=== PATIENT | male | born 1995 | race Caucasian/White ===

== ENCOUNTER → 2023-09-05 | Outpatient (CLI) | payer OTHER | END | disposition home or self-care (01) | LOC: RAH 09:43 | PROVIDERS: ATTEND Physical Medicine & Rehabilitation | DX: M48.46XA Fatigue fracture of vertebra, lumbar region, initial encounter for fracture (principal); X58.XXXA Exposure to other specified factors, initial encounter; Y93.82 Activity, spectator at an event; Y92.89 Other specified places as the place of occurrence of the external cause; Y99.8 Other external cause status | CPT/HCPCS: 72110 ==

== ENCOUNTER → 2023-09-11 | Outpatient (CLI) | payer OTHER | END | disposition home or self-care (01) | LOC: RAH 09:45 → EDUNIT# 09-14 09:00 | PROVIDERS: ATTEND Physical Medicine & Rehabilitation | DX: M48.46XA Fatigue fracture of vertebra, lumbar region, initial encounter for fracture (principal); M48.061 Spinal stenosis, lumbar region without neurogenic claudication | CPT/HCPCS: 72148 ==

== ENCOUNTER 2024-10-25 22:50 | Emergency (ER) | payer OTHER ==
[~2024-10-25] VITALS: Ht 175.3 cm; Wt 70.3 kg
--- NOTE | 2024-10-26 00:16 | ERN ---
General Chief Complaint: FOOT INJURY/PAIN Stated Complaint: STEPPED ON NAIL Time Seen by MD: 23:03 Time Seen by Midlevel: 23:03 Source: patient History of Present Illness Initial Comments Patient is a 29-year-old male with no significant past medical history presenting to the emergency department with right foot pain after he accidentally stepped on a nail. Patient was able to provide a picture of the nail and it appears the nail was anita. This occurred approximately 30 minutes prior to arrival. Patient states he is not up-to-date with his tetanus vaccination. Allergies: Coded Allergies: No Known Allergies (Unverified Allergy, Unknown, 10/25/24) Home Meds Active Scripts Cephalexin Monohydrate (Keflex) 500 Mg Cap, 500 MG PO BID for 7 Days, #14 CAP Prov:ZOHREH DODD 10/26/24 Past Medical History Past Medical History: No Pertinent History Past Surgical History: None ROS Dictation CONSTITUTIONAL: Negative except for HPI HEAD/FACE: Negative except for HPI EENT: Negative except for HPI RESPIRATORY: Negative except for HPI GASTROINTESTINAL/ABDOMINAL: Negative except for HPI GENITOURINARY: Negative except for HPI MUSCULOSKELETAL: Negative except for HPI INTEGUMENTARY: Negative except for HPI NEUROLOGICAL/PSYCH: Negative except for HPI HEMATOLOGIC/LYMPHATIC: Negative except for HPI All Systems Negative, Except as noted above. 13 point review of systems assessed and all negative except for above. Physical Exam Physical Exam Dictation PHYSICAL EXAM: GENERAL: alert,, awake oriented x 3 HEENT: EOMI, Sclera non icteric, moist mucosa NECK: Supple, no JVD, trachea midline LUNGS: Clear breath sounds bilaterally. No wheezes HEART: Regular rate and rhythm. Normal S1 and S2, without murmurs ABD: Abdomen soft, nontender. Bowel sounds present EXT: No clubbing or cyanosis, NEURO: Alert and oriented to person, follows commands SKIN: Small circular puncture wound to the plantar aspect of the right foot just below the 1st and 2nd toe, there was no surrounding erythema, induration, or drainable abscess. No active bleeding. MDM MDM: Patient is a 29-year-old male with no significant past medical history presenting to the emergency department with right foot pain after he accidentally stepped on a nail. Patient was able to provide a picture of the nail and it appears the nail was anita. This occurred approximately 30 minutes prior to arrival. Patient states he is not up-to-date with his tetanus vaccination. On physical examination there is a small circular puncture wound to the plantar aspect of the right foot just below the 1st and 2nd toe, there was no surrounding erythema, induration, or drainable abscess. No active bleeding. An x-ray of the right foot was obtained which does not show any acute fracture/subluxation/foreign body. Patient was given a tetanus vaccination along with 1 g of Ancef IM. Patient will be discharged home with oral antibiotics for empiric treatment. Patient was advised to follow up with PCP in 2-3 days for repeat evaluation. Differential diagnosis: Puncture wound, tetanus prophylaxis, fracture There are no social concerns with this patient. Prescription drug management Prescriptions will include: Keflex Medical management and examination interpretation discussions were had by me with other qualified healthcare professionals as indicated for the patient's care. ED Course Orders Procedure Category Date Status Time Foot Comp 3+Vws Rt RAD 10/25/24 Resulted 23:11 Cefazolin Sodium 1 Gm PHA 10/25/24 Complete Vial (Ancef 1 Gm V 23:30 Tetanus,Diphtheria PHA 10/25/24 Complete Tox [Adult] (Diphther 23:30 Water For PHA 10/26/24 Complete Injection,Sterile 00:21 Current Medications Medications (Trade) Dose Ordered Sig/Jesus Route PRN Reason Start Time Stop Time Status Last Admin Dose Admin Cefazolin Sodium (ANCEF 1 gm vial) 1 gm ONCE IM 10/25/24 23:30 10/26/24 00:52 DC 10/26/24 00:31 Sterile Water (Sterile Water, Injection) 10 ml STK-MED ONCE .ROUTE 10/26/24 00:21 10/26/24 00:21 DC 10/26/24 00:32 Tetanus/ Diphtheria Toxoids Adsorbed (DiphthERIA-teTANUS TOXOID [ADULT]/ DECAVAC) 0.5 ml ONCE ONCE IM 10/25/24 23:30 10/25/24 23:31 DC 10/26/24 00:31 Vital Signs Date Time Temp Pulse Resp B/P (MAP) Pulse Ox O2 Delivery O2 Flow Rate FiO2 10/26/24 00:43 98.1 68 16 116/72 99 Room Air* 0 21 10/25/24 22:52 98.2 68 16 111/76 100 Room Air 0 [facility] [address] [address] IMAGING REPORT Signed PATIENT: RACHEL FAULKNER MR#: [id number] : 1995 SEX: M AGE: 29 LOCATION: [facility] ORDER 10 STATUS: DEP ER REPORT#: [id number] SERVICE 10 REASON: nail injury ORDERING PHYSICIAN: ZOHREH DODD PROCEDURE: FT 3VW RT - FOOT COMP 3+VWS RT RIGHT FOOT RADIOGRAPHS - 3 VIEWS INDICATION: Pain COMPARISON: None FINDINGS: AP, lateral, and oblique views. No acute fracture or subluxation identified. Midfoot alignment is well maintained. No radiopaque foreign body noted. IMPRESSION: No evidence for fracture or subluxation. DICTATED BY: ABDULAZIZ ADORNO MD DATE: 10/26/24828 ELECTRONICALLY SIGNED BY: ABDULAZIZ ADORNO MD DATE: 10/26/24832 DX & DISP Disposition: Discharge Departure Impression: Primary Impression: Puncture wound of right foot Condition: Stable Scripts Cephalexin Monohydrate (Keflex) 500 Mg Cap 500 MG PO BID for 7 Days, #14 CAP Prov: ZOHREH DODD 10/26/24 Additional Instructions: Your x-ray of the right foot does not show any acute fracture foreign body. You were given a tetanus vaccination and antibiotics in the emergency department. I have provided a prescription for oral antibiotics for outpatient management. Follow up with your primary care doctor in 2-3 days for repeat evaluation. Return to the ER for any new or worsening symptoms Referrals: PAMELA ROJAS MD (PCP) I have reviewed the case, and I agree with, Diagnosis and Plan I performed the substantive portion of the visit. I have reviewed and personally made and approve the management plan that is documented in the note by myself or the RACHID. I acknowledge for responsibility for the patient's management plan. ZOHREH DODD Oct 26, 2024 00:16
[2024-10-26] MEDS: teTANUS/diphthERIA TOXOID [ADULT] 0.5 ML VIAL IM ONE (00:31)
[2024-10-26] MEDS: ceFAZolin SODIUM 1 GM VIAL IM SCH (00:31)
[2024-10-26 00:43] VITALS: BP 116/72; PULSE 68; RESP 16; TEMP 98.1; O2SAT 99
[2024-10-26] MEDS ORDERED: CEPH500B PO (00:47)
--- NOTE | 2024-10-26 08:33 | HMCIMG ---
RIGHT FOOT RADIOGRAPHS - 3 VIEWS INDICATION: Pain COMPARISON: None FINDINGS: AP, lateral, and oblique views. No acute fracture or subluxation identified. Midfoot alignment is well maintained. No radiopaque foreign body noted. IMPRESSION: No evidence for fracture or subluxation.
== END 2024-10-26 00:52 | disposition home or self-care (01) ==
LOC: EDH 22:50
DX: S91.331A Puncture wound without foreign body, right foot, initial encounter (principal); Z79.899 Other long term (current) drug therapy; W45.0XXA Nail entering through skin, initial encounter; Y93.89 Activity, other specified; Y92.89 Other specified places as the place of occurrence of the external cause; Y99.8 Other external cause status
CPT/HCPCS: 99284; 73630; 90714; 96372; 90471; J0690